=== PATIENT | female | born 1995 | race Two or more races ===

== ENCOUNTER 2017-10-26 17:18 | Day surgery (SDC) | payer SELFPAY ==
[2017-10-26 17:52] VITALS: BMI 35.2
[2017-10-26 18:11] VITALS: BP 117/59; TEMP 99.3
[2017-10-26 19:14] LABS: Bilirubin Negative (Negative); Blood, Urine Negative (Negative); Clarity CLEAR (Clear); Glucose, Urine (Dipstick) Negative (Negative); Leukocyte Negative (Negative); Nitrite Negative (Negative); Protein, Urine (Dipstick) Negative (Neg-Trace); Specific Gravity, Urine 1.025 (1.002-1.036); Urobilinogen 0.2 mg/dL (0.2-1.0); pH, Urine 6.5 (5.0-9.0)
[2017-10-26 19:21] LABS: Bacteria/HPF None Seen HPF (None Seen); Hyaline Casts/LPF 4-6 HYALINE CAST LPF (0-3 Hyaline); Pathc Cast-AUWi Flag 1.16 (0-2.49); RBC/HPF 0-3 HPF (0-3); WBC/HPF 0-3 HPF (0-3)
[2017-10-26 19:32] LABS: Renal Epithelial 0-3 HPF (0-3); Transitional Epithelial 0-3 HPF (0-3)
[2017-10-26 19:40] LABS: FFN Internal QC Analyzer PASS (PASS); FFN Internal QC Cassette PASS (PASS); Fetal Fibronectin Negative (Negative)
--- NOTE | 2017-10-26 23:39 | PRG ---
OB ED NOTE DATE OF SERVICE: 10/26/2017 TIME OF SERVICE: 1950 hours. PRESENTING COMPLAINT: Lower abdominal pain. HISTORY OF PRESENT ILLNESS: Ms. Barrett is a 22-year-old presenting with occasional lower abdominal pain. She reports an active fetus. Her DIAMOND is 01/19/2018, placing her at 27 weeks gestation. She sees Dr. Almendraez at [facility]. OB AND FLOOR TECH HISTORY: x1 at term. No history of labor. Antepartum record is not availabl e. PAST MEDICAL HISTORY: None. PAST SURGICAL HISTORY: None. ALLERGIES: None. MEDICATIONS: vitamins. SOCIAL HISTORY: Denies tobacco, alcohol, or drug abuse. FAMILY HISTORY: Noncontributory. REVIEW OF SYSTEMS: Noncontributory. PHYSICAL EXAMINATION: GENERAL: Black female, in no acute distress. VITAL SIGNS: Temperature 99.3, pulse 87, respirations 20, blood pressure 117/59. HEENT: Within normal limits. LUNGS: Clear to auscultation bilaterally. HEART: Regular rate and rhythm. ABDOMEN: Soft and nontender. There is occasional uterine irritability approximately every 10 minute s. heart rate tracing is category 1. EXTREMITIES: Without clubbing, cyanosis or edema. PELVIC: Cervix is closed, long, and high. No significant discharge noted. LABORATORY DATA: Fem-cath UA negative. fibronectin negative. IMPRESSION: Discomforts of . No evidence of labor. PLAN: Discharge home. ER precautions. Follow up at [facility] as scheduled.
== END 2017-10-26 19:55 | disposition home or self-care (01) ==
LOC: L&D/OP 17:18
PROVIDERS: ATTEND Student in an Organized Health Care Education/Training Program
DX: O99.89 Other specified diseases and conditions complicating pregnancy, childbirth and the puerperium (principal); R10.30 Lower abdominal pain, unspecified; Z3A.26 26 weeks gestation of pregnancy; Z79.899 Other long term (current) drug therapy
CPT/HCPCS: 51701; 81001; 82731; 87086; 99283

== ENCOUNTER 2018-01-12 15:13 | Inpatient (IN) | payer OTHER ==
--- NOTE | 2018-01-12 16:11 | PDOC.LDHP ---
Labor and Delivery H&P Chief complaint: scheduled induction HPI: 22 yo @ 39w0d by 7 week CRL who presents for EIOL. Pt has had PUPPS. Carrier screening + SMA and alpha thalassemia, however, FOB testing was negative. Otherwise, antepartum course benign. Current gestational age (weeks): 39 Due date: 01/19/18 Dating criteria: first trimester ultrasound Grav: 2 Para: 1 OB History Details: 2016 - term , 7 lb 6 oz Current complications: none Abnormal US findings: No Past Medical History: Denies Current medications: pre- vitamins Previous surgical history: none Allergies/Adverse Reactions: Allergies Allergy/AdvReac Type Severity Reaction Status Date / Time No Known Allergies Allergy Verified 01/13/18 00:19 Social history: none - Physical Exam Vital signs reviewed and normal: yes General: NAD Heart: RRR Lungs: nonlabored breathing Abdomen: gravid Extremeties: no edema FHT: category 1 (140s, mod agustina, +accels, no decels) [place] contractions every: q2-3 min when assessing - Vaginal Exam cm dilated: 2 (cephalic ) Effacement: 50% Station: -2 - OB Labs Blood type: O RH: positive Antibody Screen: negative HIV: negative RPR: negative HEPSAg: negative 1 hour GCT: negative GBS: negative Urine drug screen: negative Rubella: immune - Assessment L&D Assessment: elective induction at term - Plan Plan: admit to L&D, cervical ripening, informed consent obtained, anesthesia consult for pain management
[2018-01-12] MEDS ORDERED: Succinylcholine Chloride 20 MG/ML 10 ml SYRINGE FS ONE (21:00)
[2018-01-12] MEDS ORDERED: Oxytocin 10 UNITS/ML VIAL ONE (21:00)
[2018-01-12] MEDS ORDERED: Ibuprofen 800 MG TAB PO PRN (23:54)
[2018-01-12] MEDS ORDERED: Butorphanol Tartrate 1 MG/ML VIAL SLOW IVP PRN (23:54)
[2018-01-12] MEDS ORDERED: Lidocaine 1% (PF) 30 ML VIAL SC PRN (23:54)
[2018-01-12] MEDS ORDERED: NS / Oxytocin 40 units/1000ml 1,000 ML IV PRN (23:54)
[2018-01-12] MEDS ORDERED: Ondansetron HCl/PF 4 MG/2 ML Vial IVP PRN (23:54)
[2018-01-12] MEDS ORDERED: Promethazine HCl 25 MG/ML VIAL IM PRN (23:54)
[2018-01-12] MEDS ORDERED: Misoprostol 200 MCG TAB PR PRN (23:54)
[2018-01-12] MEDS ORDERED: Methylergonovine 0.2 MG/ML VIAL IM PRN (23:54)
[2018-01-12] MEDS ORDERED: Carboprost 250 MCG/ML AMP IM PRN (23:54)
[2018-01-12] MEDS ORDERED: Acetaminophen 500 MG TAB PO PRN (23:54)
[2018-01-12] MEDS ORDERED: HYDROcodone/Acetaminophen 5/325 mg Tablet PO PRN (23:54)
[2018-01-12] MEDS ORDERED: Diphenoxylate HCl/Atropine Tablet PO PRN (23:54)
[2018-01-13 00:07] LABS: Hemoglobin 12.2 g/dL (12.0-16.0); Mean Corpuscular HGB CONC 34.1 g/dL (32.0-36.0); Mean Corpuscular Hemoglobin 28.8 pg (25.0-35.0); Mean Corpuscular Volume 84.5 fL (78.0-98.0); Mean Platelet Volume 7.5 fL (7.4-10.4); Platelet Count 357 thou/uL (130-400); RBC Distribution Width 11.8 % (11.5-14.5); Red Blood Cell (RBC) Count 4.22 mill/uL (4.00-5.20); White Blood Cell (WBC) Count 12.2 thou/uL (4.8-10.8)
[2018-01-13 00:16] VITALS: BMI 36.8
[2018-01-13 00:45] LABS: Syphilis Antibody Nonreactive (Nonreactive); Syphilis Antibody Index 0.05 S/CO (<1.00 Non-Reactive)
[2018-01-13 00:47] LABS: HBSAg Index 0.23 S/CO (0-0.99); HIV (1/2) Antibody/Antigen Non-Reactive (NonReactive); HIV 1/2 INDEX 0.23 S/CO (<1.00); Hep B Surf Ag Non-Reactive S/CO (NonReactive)
[2018-01-13] MEDS: Lactated Ringer's 1,000 ML IV SCH ×5 (00:47→19:37)
[2018-01-13] MEDS: Misoprostol 100 MCG TAB VAG SCH ×7 (00:47→21:29)
[2018-01-13] MEDS ORDERED: NS w/ Oxytocin 10 units 500 ML IV SCH (06:00)
[2018-01-13] MEDS ORDERED: Bupivacaine 0.5% 20 ML, fentaNYL Citrate/PF 400 MCG in Sodium Chloride 0.9% 72 ML EPIDURAL SCH (10:15)
[2018-01-13] MEDS ORDERED: DISCONTINUE ALL PREVIOUS NARCOTICS FS SCH (10:15)
--- NOTE | 2018-01-13 12:48 | PDOC.LDPN ---
Labor & Delivery Progress Note - Subjective Subjective: painful contractions - Objective Vital signs reviewed and normal: yes General: NAD Uterine fundus: non tender Dilation: 2-3 Effacement: 50% Station: -2 FHT: category 2 (140s, mod agustina, +accels, occasional prolonged decel ) [place] contractions every: not assessing well AROM: clear fluid IUPC placed: yes FSE placed: yes - Assessment (1) 39 weeks gestation of Code(s): Z3A.39 - 39 WEEKS GESTATION OF Current Visit: Yes Status : Acute (2) Elective induction of labor planned Code(s): [id number] - Current Visit: Yes Status: Acute -: Continue pitocin Internal monitors placed. Currently cat 1
[2018-01-13] MEDS ORDERED: Lactated Ringer's 500 ML IV PRN (14:34)
[2018-01-13] MEDS ORDERED: diphenhydrAMINE 50 MG/ML VIAL IVP PRN ×2 (14:34→20:33)
[2018-01-13] MEDS ORDERED: ePHEDrine/0.9% NaCl/PF SYRINGE 50 mg/10 ml SLOW IVP PRN (14:34)
[2018-01-13] MEDS ORDERED: Promethazine HCl 25 MG/ML VIAL IM PRN ×2 (14:34→20:33)
[2018-01-13] MEDS ORDERED: Naloxone HCl 0.4 mg/ml Vial IVP PRN ×4 (14:34→20:33)
[2018-01-13] MEDS ORDERED: Eucerin (Mineral Oil/Petrolatum,White) 30 gm Jar TOP PRN ×2 (14:34→20:33)
[2018-01-13] MEDS ORDERED: Acetaminophen 325 MG TAB PO PRN (14:34)
[2018-01-13] MEDS ORDERED: Ondansetron HCl/PF 4 MG/2 ML Vial IVP PRN ×3 (14:34→20:33)
[2018-01-13] MEDS ORDERED: fentaNYL Citrate/PF 400 MCG, Bupivacaine 0.5% 20 ML in Sodium Chloride 0.9% 72 ML EPIDURAL SCH (14:45)
[2018-01-13] MEDS ORDERED: Communication Order-Pharmacy FS SCH ×2 (14:45→20:45)
--- NOTE | 2018-01-13 17:27 | PDOC.LDPN ---
Labor & Delivery Progress Note - Subjective Subjective: comfortable - Objective Vital signs reviewed and normal: yes General: NAD Uterine fundus: non tender Dilation: 6-7 Effacement: 90% Station: 1+ FHT: category 2 (120s, mod agustina, +accels, recurrent variable decels with ctx; resolved with amnioinfusion and terb x1) [place] contractions every: q2min Resuscitative measures: amniofusion, maternal oxygen, maternal IV fluids, maternal position change - Assessment (1) 39 weeks gestation of Code(s): Z3A.39 - 39 WEEKS GESTATION OF Current Visit: Yes Status : Acute (2) Elective induction of labor planned Code(s): [id number] - Current Visit: Yes Status: Acute Plan: resuscitative measures -: Fetus responded to intrauterine resuscitation. Suspect due to rapid progression vs tachysystole recently. Will continue to monitor. May restart pitocin if needed and fetus reassuring, however, assess with current ctx pattern.
[2018-01-13] MEDS ORDERED: Fentanyl 100 MCG/2 ML VIAL ONE ×2 (18:54→20:01)
[2018-01-13] MEDS ORDERED: Bicitra 30 ML UDCUP ONE (19:29)
[2018-01-13] MEDS ORDERED: Ondansetron HCl/PF 4 MG/2 ML Vial ONE (19:32)
[2018-01-13] MEDS ORDERED: Ketorolac Tromethamine 30 MG/ML VIAL ONE (19:32)
[2018-01-13] MEDS ORDERED: PHENYLEPHRINE-NS 100 MCG/ML 10 ML SYRINGE ONE (19:32)
[2018-01-13] MEDS ORDERED: Oxytocin 10 UNITS/ML VIAL ONE (19:32)
[2018-01-13] MEDS ORDERED: CEFAZOLIN/Water 2 GM/20 ML SYRINGE ONE (19:36)
--- NOTE | 2018-01-13 19:45 | PDOC.LDPN ---
Labor & Delivery Progress Note - Subjective Subjective: comfortable - Objective Vital signs reviewed and normal: yes General: NAD Uterine fundus: non tender Dilation: 6-7 Effacement: 90% Station: 1+ FHT: category 2 (120s, mod agustina, now recovered; recurrent prolonged decels to 80s with bried recovery off of pitocin. ) [place] contractions every: q3-4 min - Assessment (1) 39 weeks gestation of Code(s): Z3A.39 - 39 WEEKS GESTATION OF Current Visit: Yes Status : Acute (2) Elective induction of labor planned Code(s): [id number] - Current Visit: Yes Status: Acute (3) Non-reassuring status Code(s): [id number] - Current Visit: Yes Status: Acute -: Due to recurrent prolonged decels without augmentation, inability to further augment labor, and remote from delivery, recommend PLTCS. Pt amenable. To OR.
[2018-01-13] MEDS ORDERED: Midazolam HCl 2 mg/2 ml Vial ONE (20:01)
[2018-01-13] MEDS ORDERED: Morphine PF 1 MG/ML SYR ONE (20:13)
[2018-01-13 20:27] LABS: Actual Bicarbonate (HCO3a) 29.1 mEq/L (22-28); Base Excess (BEa) -4.6 mEq/L (-2.0 to +3.0); pH (Cord, venous) 7.27 (7.32-7.43)
[2018-01-13 20:28] LABS: Actual Bicarbonate (HCO3v) 22 mEq/L (22-28); Base Excess -5.6 mEq/L (-2.0 to +3.0)
[2018-01-13] MEDS ORDERED: Meperidine HCl/PF 25 MG/ML VIAL SLOW IVP PRN (20:33)
[2018-01-13] MEDS ORDERED: Promethazine HCl 25 MG SUPP PR PRN (20:33)
[2018-01-13] MEDS ORDERED: HYDROmorphone 2 MG/ML VIAL SLOW IVP PRN (20:33)
[2018-01-13] MEDS ORDERED: Naloxone HCl 0.4 mg/ml Vial IV PRN (20:33)
--- NOTE | 2018-01-13 20:40 | PDOC.OPDEL ---
OB Operative/Delivery Note Delivery Dr/Surgeon: Little Poe DO Assist: Lizz Mart MD Pre-Delivery Diagnosis: non-reassuring tracing Procedure/Post Delivery Dx: primary low transverse CS Weeks gestation: 39 Anesthesia: other (general, epidural) - Findings A Sex: male - 1 min: 8 - 5 min: 8 - Additional Findings/Plan Placenta delivered: spontaneous findings: low transverse hysterotomy without extension, normal uterus, normal tubes, normal ovaries Estimated blood loss: QBL 605 cc Compilations/Other Findings: Viable male in cephalic presentation No nuchal cord, clear AF, normal appearing placenta Post delivery plan: routine recovery (Dictation # [id number])
[2018-01-13] MEDS ORDERED: Morphine 4 MG/ML VIAL ONE (21:47)
[2018-01-13] MEDS ORDERED: NS / Oxytocin 40 units/1000ml 1,000 ML IV SCH (23:13)
[2018-01-13] MEDS ORDERED: Methylergonovine 0.2 MG/ML VIAL IM PRN (23:13)
[2018-01-13] MEDS ORDERED: Bisacodyl 10 MG SUPP PR PRN (23:13)
[2018-01-13] MEDS ORDERED: Misoprostol 200 MCG TAB PR PRN (23:13)
[2018-01-13] MEDS ORDERED: Simethicone Chewable 80 MG TAB PO PRN (23:13)
[2018-01-13] MEDS ORDERED: Ibuprofen 800 MG TAB PO SCH (23:30)
[2018-01-14] MEDS ORDERED: Acetaminophen 1,000 MG in Premix Bag 1 BAG IVPB PRN (02:00)
--- NOTE | 2018-01-14 02:50 | OP ---
PREOPERATIVE DIAGNOSES: 1. A 39-week intrauterine . 2. Elective induction. 3. Nonreassuring status, remote from delivery. POSTOPERATIVE DIAGNOSES: 1. A 39-week intrauterine . 2. Elective induction. 3. Nonreassuring status, remote from delivery. PROCEDURE: Primary low transverse delivery via Pfannenstiel skin incision. SURGEON: Little Poe DO ACTUARIAL MANAGER: Lizz Mart MD COMPLICATIONS: None. QUANTITATIVE BLOOD LOSS: 605 mL URINE OUTPUT: 300 mL FINDINGS: A viable male infant in cephalic presentation with Apgars 8 and 8, clear amniotic fluid. Normal appearing placenta. No signs of a nuchal cord or other acute findings contributing to decelerations. Normal-appearing ovaries and fallopian tubes bilaterally. INDICATIONS FOR THE PROCEDURE: Ms. Brock Barrett is a 22-year-old at 39 weeks and 0 days who desired an elective induction. The patient underwent an elective induction with cervical ripening followed by Pitocin augmentation. The fetus began to display recurrent late decelerations this afternoon, which were initially responsive to discontinuation of the Pitocin, amnioinfusion, and maternal intrauterine resuscitative measures; however, the patient did not make additional cervical dilation without being able to augment with Pitocin and then began to display recurrent late decelerations followed by prolonged decelerations to the 80s and 90s for 3-4 minutes with subsequent recovery. Due to the prolonged decelerations with intermittent recovery, the patient was counseled and a primary delivery was recommended. The patient was amenable. PROCEDURE IN DETAIL: The patient was brought to the operating room. She was placed in supine position with a leftward tilt. Calle catheter was already in place and Ancef was given for surgical prophylaxis. She was prepped and draped in the sterile fashion and an official timeout was performed. Anesthesia was assessed and was inadequate as the patient was able to feel the testing, therefore the patient was placed under general anesthesia. A Pfannenstiel skin incision was made using the scalpel, this was carried down to the underlying fascial layer. The fascia was incised in the midline and was extended bilaterally using Cyr scissors. The superior aspect of the fascial incision was grasped using Melva clamps, tented upward and dissected free from the underlying rectus abdominis muscles and the same was done inferior aspect of the fascia. The peritoneum was entered in bluntly and extended using blunt dissection. The Albert O retractor was placed into the abdomen. A low transverse hysterotomy was made with the scalpel and the hysterotomy was extended using blunt dissection. Amniotic membranes were ruptured, noting clear amniotic fluid. Infant was delivered in cephalic presentation without difficulty. 's cord was clamped and cut and was handed to the awaiting neonatology team. Cord sample and cord blood were obtained. The placenta was delivered spontaneously intact. The uterus was cleared of all clot and debris. Hysterotomy was closed in a running locking fashion, creating hemostasis. There was uterine atony noted initially likely due to the local anesthetic with atony was resolved with Pitocin and uterine massage. The ovaries and fallopian tubes were evaluated and appeared normal. The pelvis was irrigated and cleared of all clot and debris. The rectus abdominis muscles were evaluated and hemostatic and then the fascia was then closed in a running fashion using 0 PDS. Subcutaneous layer was copiously irrigated and hemostatic with the use of the Bovie. Subcutaneous layer was closed using a 3-0 Vicryl and the skin was closed using 4-0 Monocryl and Dermabond. The patient tolerated the procedure well. There were no complications. All counts were correct x3. The mother was extubated without difficulty and mother and baby will be transferred to the recovery room in hemodynamically stable condition. The details of the surgery were discussed with the patient's family. All questions were answered. There was no overt sign is to why the fetus was having bradycardia. The arterial and venous cord gases are normal. MTDD
[2018-01-14] MEDS: Ketorolac Tromethamine 30 MG/ML VIAL IVP PRN ×2 (05:16→14:42)
[2018-01-14] MEDS: Lactated Ringer's 1,000 ML IV SCH ×2 (05:24→21:55)
[2018-01-14] MEDS: Ibuprofen 800 MG TAB PO SCH ×3 (05:26→21:02)
[2018-01-14 06:23] LABS: Band 27 % (5-11); Hemoglobin 10.5 g/dL (12.0-16.0); Lymphocytes 9 % (28-48); MDiff Complete? YES; Mean Corpuscular HGB CONC 33.3 g/dL (32.0-36.0); Mean Corpuscular Hemoglobin 28.4 pg (25.0-35.0); Mean Corpuscular Volume 85.3 fL (78.0-98.0); Mean Platelet Volume 7.5 fL (7.4-10.4); Monocytes 3 % (0-4); Neutrophil 61 % (31-61); PLT Morphology Comment Appears Adequate; Platelet Count 323 thou/uL (130-400); RBC Distribution Width 11.8 % (11.5-14.5); Red Blood Cell (RBC) Count 3.69 mill/uL (4.00-5.20); White Blood Cell (WBC) Count 20.5 thou/uL (4.8-10.8)
[2018-01-14] MEDS: Prenatal Vitamin 1 TAB PO SCH (08:23)
[2018-01-14] MEDS: Docusate Calcium (SURFAK) 240 MG CAP PO SCH ×2 (08:23→21:02)
--- NOTE | 2018-01-14 08:40 | PDOC.PP ---
Post Progress Note Post Day #: 1 Subjective: Doing well. Bottle feeding. Minimal lochia. Pain controlled. PO intake tolerated: yes Flatus: yes Ambulation: no Vital Signs (12 hours) Temp Pulse Resp BP Pulse Ox 01/14/18 07:43 99.7 F H 100 18 127/79 97 01/14/18 05:20 98.8 F 101 H 18 01/14/18 05:00 98.8 F 101 H 18 136/83 95 01/14/18 01:34 98.3 F 89 18 136/81 01/14/18 00:39 92 16 129/70 01/13/18 23:30 98.0 F 96 18 127/85 98 01/13/18 22:55 97.9 F 99 18 122/83 98 Weight Weight 208 lb - Physical Examination General: NAD Cardiovascular: no m/r/g Respiratory: non-labored breathing Abdominal: no distention, appropriately TTP Fundus firm & at: below umbilicus Extremities: negative homans (B) Deviation from normal: Dressing c/d/i Neurological: no gross focal deficits Psychiatric: A&Ox3 Result Diagrams: 01/14/18 05:13 Additional Labs: Post Labs Blood Type O POSITIVE 01/12/18 23:56 Hep Bs Antigen Non-Reactive S/CO (NonReactive) 01/12/18 23:56 (1) 39 weeks gestation of Code(s): Z3A.39 - 39 WEEKS GESTATION OF Status: Resolved (2) Elective induction of labor planned Code(s): [id number] - Status: Resolved (3) Non-reassuring status Code(s): [id number] - Status: Resolved (4) Status post primary low transverse section Code(s): Z98.891 - HISTORY OF UTERINE SCAR FROM PREVIOUS SURGERY Status: Acute - Assessment/Plan PPD1 VSSAF Continue PP care Remove luna, ambulate and regular diet. Plan for d/c home tomorrow.
[2018-01-14] MEDS: HYDROcodone/Acetaminophen 5/325 mg Tablet PO PRN ×2 (19:02→22:56)
[2018-01-15] MEDS: Ibuprofen 800 MG TAB PO SCH ×2 (05:50→14:59)
[2018-01-15] MEDS: Lactated Ringer's 1,000 ML IV SCH ×2 (08:05→15:04)
[2018-01-15] MEDS: HYDROcodone/Acetaminophen 5/325 mg Tablet PO PRN ×2 (08:08→10:57)
[2018-01-15] MEDS: Docusate Calcium (SURFAK) 240 MG CAP PO SCH (10:28)
[2018-01-15] MEDS: Prenatal Vitamin 1 TAB PO SCH (10:28)
[2018-01-15 12:31] VITALS: BP 124/69; TEMP 98.4
--- NOTE | 2018-01-15 13:43 | PDOC.PP ---
Post Progress Note Post Day #: 2 Subjective: Doing well overall. Pain is moderate. Passing flatus, voiding. Minimal lochia. No f/c. PO intake tolerated: yes Flatus: yes Ambulation: yes Vital Signs (12 hours) Temp Pulse Resp BP Pulse Ox 01/15/18 12:31 98.4 F 80 20 124/69 01/15/18 12:00 98.4 F 80 20 01/15/18 08:44 98.2 F 91 20 117/67 99 01/15/18 08:00 98.1 F 71 18 01/15/18 05:40 98.1 F 71 18 118/74 97 Weight Weight 208 lb - Physical Examination General: NAD Cardiovascular: RRR Respiratory: non-labored breathing Abdominal: no distention, appropriately TTP Fundus firm & at: below umbilicus Extremities: negative homans (B) Skin: CS incision dry & intact, no rash Neurological: no gross focal deficits Psychiatric: A&Ox3, normal affect Result Diagrams: 01/14/18 05:13 Additional Labs: Post Labs Blood Type O POSITIVE 01/12/18 23:56 Hep Bs Antigen Non-Reactive S/CO (NonReactive) 01/12/18 23:56 (1) 39 weeks gestation of Code(s): Z3A.39 - 39 WEEKS GESTATION OF Status: Resolved (2) Elective induction of labor planned Code(s): [id number] - Status: Resolved (3) Non-reassuring status Code(s): [id number] - Status: Resolved (4) Status post primary low transverse section Code(s): Z98.891 - HISTORY OF UTERINE SCAR FROM PREVIOUS SURGERY Status: Acute - Assessment/Plan PPD2 VSSAF Pain as expected post op. D/C home with PRN pain meds. F/U 2 weeks for incision check
[2018-01-15] MEDS ORDERED: HYDROcodone/Acetaminophen 10/325 mg Tablet PO PRN (13:45)
== END 2018-01-15 16:00 | disposition home or self-care (01) | DRG 766 ==
LOC: L&D 22:54 → 3SE 01-13 23:09
PROVIDERS: ADMIT Obstetrics & Gynecology; ATTEND Obstetrics & Gynecology
PROC: 10D00Z1 Extraction of Products of Conception, Low, Open Approach (ICD-10-PCS; principal; 2018-01-12)
PROC: 3E0P7VZ Introduction of Hormone into Female Reproductive, Via Natural or Artificial Opening (ICD-10-PCS; 2018-01-12)
PROC: 4A0HXCZ Measurement of Products of Conception, Cardiac Rate, External Approach (ICD-10-PCS; 2018-01-12)
DX: O34.211 Maternal care for low transverse scar from previous cesarean delivery (principal); O76 Abnormality in fetal heart rate and rhythm complicating labor and delivery; Z3A.39 39 weeks gestation of pregnancy; Z37.0 Single live birth
CPT/HCPCS: 36415; 51702; 82805; 85025; 85027; 86780; 86850; 86900; 86901; 87340; 87389; A4216; J0131; J1885; J2210; J2250; J2270; J2274; J2405; J2590; J3010; J3490; J7050

== ENCOUNTER 2018-10-24 02:36 | Emergency (ER) | payer OTHER ==
[2018-10-24] MEDS ORDERED: Lorazepam 2 MG/ML VIAL ONE (03:37)
== END 2018-10-24 04:44 | disposition home or self-care (01) ==
LOC: ERS 02:36
DX: F41.9 Anxiety disorder, unspecified (principal); R06.4 Hyperventilation; F32.9 Major depressive disorder, single episode, unspecified
CPT/HCPCS: 96374; J2060

== ENCOUNTER 2019-01-08 03:29 | Emergency (ER) | payer OTHER | END 2019-01-08 04:13 | LOC: ERS 03:29 | DX: F10.129 Alcohol abuse with intoxication, unspecified (principal); F32.9 Major depressive disorder, single episode, unspecified | CPT/HCPCS: 99284 ==